=== PATIENT | female | born 1995 | race Two or more races ===

== ENCOUNTER 2019-02-14 16:19 | Emergency (ER) | payer OTHER ==
[~2019-02-14] VITALS: Ht 167.6 cm; Wt 86.2 kg
[2019-02-14] MEDS ORDERED: PRENATAL + DHA1 EAC1 (17:11)
== END 2019-02-14 22:16 | disposition home or self-care (01) ==
LOC: ER 16:19
DX: O26.891 Other specified pregnancy related conditions, first trimester (principal); K52.9 Noninfective gastroenteritis and colitis, unspecified; Z34.01 Encounter for supervision of normal first pregnancy, first trimester

== ENCOUNTER 2019-05-18 18:16 | Outpatient (CLI) | payer OTHER ==
[~2019-05-18] VITALS: Ht 152.4 cm; Wt 92.1 kg
[~2019-05-18 18:16] MED LIST: PRENATAL + DHA1 EAC1
[2019-05-19] MEDS ORDERED: MACROBID 100 M100 MG PO (09:52)
[2019-05-19] MEDS ORDERED: LOTRISONE CREAM45 GM TOP (09:54)
== END 2019-05-19 11:46 | disposition home or self-care (01) ==
LOC: OBS/DEL 18:16
DX: O23.42 Unspecified infection of urinary tract in pregnancy, second trimester (principal); O35.8XX1 Maternal care for other (suspected) fetal abnormality and damage, fetus 1; O98.812 Other maternal infectious and parasitic diseases complicating pregnancy, second trimester; B37.89 Other sites of candidiasis

== ENCOUNTER 2019-08-25 19:44 | Outpatient (CLI) | payer OTHER ==
[~2019-08-25 19:44] MED LIST changes: +LOTRISONE CREAM45 GM TOP; +MACROBID 100 M100 MG PO
== END 2019-08-25 20:10 | disposition home or self-care (01) ==
LOC: NST 19:44
DX: Z34.83 Encounter for supervision of other normal pregnancy, third trimester (principal)

== ENCOUNTER 2019-08-26 00:23 | Inpatient (IN) | payer OTHER ==
[~2019-08-26] VITALS: Ht 167.6 cm; Wt 104.8 kg
== END 2019-08-28 11:21 | disposition home or self-care (01) | DRG 807 ==
LOC: OBS/DEL 00:23 → LDR 02:56 → OBS/DEL 02:56 → LDR 03:48 → OB/GYN 17:18
PROVIDERS: ADMIT Specialist
PROC: 10E0XZZ Delivery of Products of Conception, External Approach (ICD-10-PCS; principal; 2019-08-26)
PROC: 0HQ9XZZ Repair Perineum Skin, External Approach (ICD-10-PCS; 2019-08-26)
PROC: 3E033VJ Introduction of Other Hormone into Peripheral Vein, Percutaneous Approach (ICD-10-PCS; 2019-08-26)
PROC: 4A1HXCZ Monitoring of Products of Conception, Cardiac Rate, External Approach (ICD-10-PCS; 2019-08-26)
DX: O70.0 First degree perineal laceration during delivery (principal); Z37.0 Single live birth; Z3A.39 39 weeks gestation of pregnancy

== ENCOUNTER 2021-01-09 16:28 | Emergency (ER) | payer OTHER ==
[~2021-01-09] VITALS: Ht 167.6 cm; Wt 96.6 kg
== END 2021-01-09 20:10 | disposition home or self-care (01) ==
LOC: ER 16:28
DX: M94.0 Chondrocostal junction syndrome [Tietze] (principal); R07.89 Other chest pain; R11.0 Nausea

== ENCOUNTER 2025-01-15 09:08 | Emergency (ER) | payer OTHER ==
[~2025-01-15] VITALS: Ht 167.6 cm; Wt 95.3 kg
[2025-01-15 11:02] LABS: BASO % 0.3 % (0.1-1.2); EOS # 0.21 (0.04-0.54); EOS % 3.2 % (0.7-7.0); LYMPH # 2.04 (1.18-3.74); LYMPH % 31.4 % (19.3-53.1); MEAN PLATELET VOLUME 11.00 fl (9.4-12.4); MONO # 0.47 (0.24-0.82); MONO % 7.2 % (4.7-12.5); NEUT # 3.74 (1.56-6.13); NEUT % 57.7 % (34.0-71.1); RED CELL DISTRIBUTION WIDTH 12.1 % (11.6-14.4)
[2025-01-15 11:43] LABS: BUN CREA RATIO 16.0 (7.0-25.0); CREATININE SERUM 0.67 mg/dL (0.55-1.02); GFR 105.58; GLUCOSE FASTING 90.0 mg/dL (65-100); OSMOLALITY SERUM 275.0 MOSM/KG (275-295); TSH 0.944 uIU/mL (0.358-3.74)
== END 2025-01-15 14:05 | disposition home or self-care (01) ==
LOC: ER 09:08
PROVIDERS: General Practice
DX: R00.2 Palpitations (principal); R51.9 Headache, unspecified